=== PATIENT | female | born 1950 | race Caucasian/White ===

== ENCOUNTER → 2017-12-08 | Outpatient (CLI) | payer MEDICARE, OTHER ==
--- NOTE | 2017-12-08 10:45 | RADIOLOGY REPORT (SQ) ---
EXAM DESCRIPTION: BARIUM SWALLOW ESOPHAGUS COMPLETED DATE/TIME: 12/08/2017 9:55 am REASON FOR STUDY: R13.10 DYSPHAGIA, UNSPECIFIED R13.10 DYSPHAGIA, UNSPECIFIED COMPARISON: CT abdomen pelvis 06/12/2016 Barium swallow 10/03/2014, PET-CT 08/21/2010, [facility] TECHNIQUE: Under fluoroscopic guidance, patient ingested thin barium. Fluoroscopic spot images and r outine radiographic images acquired and stored on PACS. 12 MM BARIUM TABLET GIVEN: Yes. The barium tablet to about 5 minutes to pass through the esophagus, related to dysmotility. LIMITATIONS: None. FLUOROSCOPY TIME: 3 minutes 38 seconds 31 series of digital images saved to PACS. FINDINGS: NEUROMUSCULAR COORDINATION OF SWALLOW: Normal. No aspiration. ESOPHAGEAL MOTILITY: Prominent tertiary contractions of the esophagus. ESOPHAGEAL MUCOSA: Normal mucosa without masses or ulceration. 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 Un dandy the elevated left hemidiaphragm, the spleen, pancreatic tail, splenic flexure, and nearly the ent lucy stomach are present. The [place] gastroesophageal junction is below the left hemidiaphragm. [place], the stomach is inverted under the left hemidiaphragm, body of the stomach is cephalad to the fun dus and antral pyloric region. This configuration is similar compared to outside studies dating back to 2009. No Mirella fundoplication is identified. No gastroesophageal reflux on today's images. Imaging of the stomach demonstrates prompt emptying into the pylorus and duodenum bulb. Duodenum jej unal junction normal location, to the left of the spine. NON-GI TRACT STRUCTURES: Old lower cervical discectomy and fusion from C4 through C6 OTHER: No other significant finding. 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 Thi s configuration is similar compared to studies dating back to 2009 COMMENT: Quality ID 145: Final reports for procedures using fluoroscopy that document radiation exp osure indices, or exposure time and number of fluorographic images (if radiation exposure indices are not available) TECHNICAL DOCUMENTATION: JOB ID: [id number] [employer]- All Rights Reserved
== END ==
LOC: RAD 11:08
PROVIDERS: ATTEND Internal Medicine
DX: R13.10 Dysphagia, unspecified (principal)
CPT/HCPCS: 74220

== ENCOUNTER → 2018-02-18 | Outpatient (CLI) | payer MEDICARE, OTHER ==
--- NOTE | 2018-02-18 12:43 | RADIOLOGY REPORT (SQ) ---
EXAM DESCRIPTION: COOKIE SWALLOW COMPLETED DATE/TIME: 02/18/2018 10:01 am REASON FOR STUDY: DYSPHAGIA R13.10 DYSPHAGIA, UNSPECIFIED FOOD IN PHARYNX CAUSING OTHER INJURY, SEQ UELA T1 7.228 S COMPARISON: Barium swallow 12/08/2017 TECHNIQUE: Videofluoroscopic swallowing examination was performed in conjunction with speech patholo gy. Videofluoroscopic imaging was obtained and reviewed and these are the findings: RADIATION DOSE: Total fluoroscopy time: 1 minutes 41 seconds 1 fluoroscopy image saved to PACS. LIMITATIONS: None FINDINGS: The patient was brought into the fluoro room and placed upright on a modified barium swall ow chair. The patient was then given multiple consistencies mixed with barium to swallow under live fluoroscopic video guidance. According to the Speech Pathologist there was no laryngeal penetration and no tracheal aspiration. Normal oral and pharyngeal transit time was observed. No significant po st swallow residual seen. Barium tablet was swallowed without difficulty. Cervical hardware is note d overlying C 4 through 6. Please see speech pathology report for further details and recommendations . IMPRESSION: NO EVIDENCE OF LARYNGEAL PENETRATION OR TRACHEAL ASPIRATION.PLEASE SEE SPEECH PATHOLOGIS T REPORT FOR OTHER FINDINGS AND RECOMMENDATIONS. COMMENT: Quality ID 145: Final reports for procedures using fluoroscopy that document radiation exp osure indices, or exposure time and number of fluorographic images (if radiation exposure indices are not available) TECHNICAL DOCUMENTATION: JOB ID: [id number] [employer]- All Rights Reserved Reading location - IP/workstation name: [email or web address]
--- NOTE | 2018-02-19 09:05 | ST Modified Barium Swallow ---
Recommendation - Recommendations Recommendations: No oral or pharyngeal swallowing deficits noted. No diet modifications recommended. Medical Diagnoses - Medical Diagnoses Medical Diagnosis Description & ICD-10 Code(s): dysphagia R13.10 Other Medical Diagnoses/Co-Morbidities: per patient report: Sjogren's, Audrey 's, hernia, cervical spine fusion May 2003 ST Modified Barium Swallow - General Date: 02/18/18 Referring Physician: Dr. Buchanan - History History obtained from: Patient -: Medical - Patient reports that she notices having difficulty with solids and liquids with swallowing. Reports she feels that material is sticking in her throat, which causes her to cough at times. She reports a prior MBSS in 2013 at [facility], and reports that the therapist for that study indicated "pills wanted to sit on a shelf". No treatment was rendered at that time. The patient also reports a history of hernia surgery in 2009, with multiple issues regarding stomach and esophagus. Does report some burning sensation in her throat at times, for which her physician prescribed protonix. The patient reports no history of pneumonia, and no history of CVA. Medications: patient reports taking protonix and zantac, as well as vitamins, complete medication list not given. Allergies: Patient reports celery and mint allergy, medication allergies listed in chart. - Functional Status Prior Functional Status: INDEPENDENT: feeding - Subjective Patient/caregiver goal(s): safe swallow Cognitive-Linguistic Function: WNL Speech Intelligibility: WNL Current Nutritional Means: PO Current PO diet: Regular Current symptoms: Coughing, c/o Globus sensation Pain: Patient reports, 0/5 - Objective Assessment: Upright, Left Lateral - Food Trials Used Food trials used: Thin liquids, Pureed, Regular, Other - barium tablet The patient: Was Able to Self Feed - Oral-Motor Skills Dentition: Full Laryngeal Function: Volitional Cough - WNL, Volitional Swallow - WNL - Assessment Oral prep: Normal Labial closure: Adequate Leakage: None Mastication: Adequate Lingual Movement: Normal Oral stage: Normal for this Procedure - Pharyngeal Stage Initiation of Pharyngeal Stage Reflex: Normal Decreased laryngeal elevation: No Reduced Velopharyngeal Closure: no Reduced pressure generation: No reduced tongue-based retraction: No Pre-swallow pooling in valleculae: None Pre-Swallow pooling in pyriforms: None Reduced Thyro-Hyoid approximation: No Reduced epiglottic excursion: No Reduced pharyngeal peristalsis/contraction: No Post-swallow residulas vallecular: Mild Post-Swallow residuals in pyriforms: None Pharyngeal Stage Comments: Signs of posterior pharyngeal wall variance at approximately level C3 near site of cervical fusion. Did not impact swallowing function. - Fall Risk Assessment Medications/Conditions that increase fall risks include: Antidepressants, sedatives, anti-arrhythmic, diuretic, benzodiazipenes, neuroleptics. BP regulation problems, cardiac problems, balance or gait deficits, neurological problems. Fall Risk Actions Taken: No action needed - Behavioral Observations During evaluation process patient: was pleasant, was cooperative, able to answer questions, provided medical history - Treatment / Educational Needs: Treatment/Education Needs: Treatment consisted of patient education on the role of the Speech Pathologist. Patient's plan of care and golas were communicated as well as scheduling and attendance policies. Recommendations for initial home program were shared. Patient demonstrated understanding and verbalized agreement. - Impression/Summary Laryngeal Penetration: No Tracheal Aspiration: no Patient presents with: Normal swallow at eval Risk of Aspiration: Minimal Evaluation and Findings: Patient presents with no oral or pharyngeal deficits in function of swallow. Patient may be feeling some discomfort or globus sensation due to co-occuring issues such as thyroid dysfunction and esophageal issues. - Recommendations Solid diet recommendations: Regular Liquid Diet Modification: Thin Pt/Family education and followup with MD: Yes Dysphagia therapy with MANUFACTURING QUALITY INSPECTOR: no - Patient stated at evaluation that she had an outpatient clinical swallowing evaluation scheduled. Educated patient on nature of her swallowing, and that dysphagia treatment may not be beneficial to her. Stated that she can keep the evaluation that was scheduled to further discuss her MBSS results, or for further education on swallowing disorders. Patient stated she would discuss with her physician whether she should keep the appointment or not. Recommended techniques: Fully Upright During Meal, Small Bites and Sips Information, Precautions and Recommendations: Patient (Written), Patient (Verbal ) - Time Total Time: 20 - Plan of Care Patient to follow-up with referring physician: Yes Strategies to optimize patient understanding include:: ongoing assessment of educational needs, implementation of educational strategies, and re-education. - - -: Thank you for the opportunity to work with this patient and his/her family. Should you have any questions about this patient's plan or progress, I can be reached at [phone]. Charge G Code? - - -: Yes ST F.L. Impairment Category - Rationale Based On Rationale Based On: Func. Asskandis. Tool Results - Swallowing Current G8996: CH 0% Impaired Goal G8997: CH 0% Impaired Discharge G8998: CH 0% Impaired
== END ==
LOC: RAD 08:09
PROVIDERS: ATTEND Otolaryngology
DX: R13.10 Dysphagia, unspecified (principal)
CPT/HCPCS: 74230; 92611; G8996; G8997; G8998

== ENCOUNTER → 2019-01-31 | Outpatient (CLI) | payer MEDICARE, OTHER ==
--- NOTE | 2019-01-31 15:08 | RADIOLOGY REPORT (SQ) ---
EXAM DESCRIPTION: NM GASTRIC EMPTYING STUDY COMPLETED DATE/TIME: 01/31/2019 2:35 pm REASON FOR STUDY: R10.13 EPIGASTRIC PAIN R10.13 EPIGASTRIC PAIN COMPARISON: None. RADIONUCLIDE AND DOSE: 1.98 millicuries Tc-99m Sulfur Colloid. A wide variety of solid foods have been used. The route of agent administration: Oral. TECHNIQUE: 1 minute serial static imaging performed at time of meal, 1 hour, 2 hours, 3 hours, and 4 hours as needed. Once stomach reaches 90% emptying, the test is complete. Image intensity values pl otted with respect to time with linear regression algorithm. LIMITATIONS: None. FINDINGS: Patient was observed for 4 hours. Immediate post meal serves as baseline. Gastric emptying at 60 minutes was 21.1%. Gastric emptying at 90 minutes was 31.7% Gastric emptying at 120 minutes was 42.2%. Gastric emptying at 240 minutes was 84.4%. Normal values: 60 minutes: 30-90% retained. If less than 30%, abnormally rapid emptying. If greater than 90%, del ayed gastric emptying. 120 minutes: <60% retained. If greater than 60%, delayed gastric emptying. 240 minutes: <10% retained. If greater than 10%, delayed gastric emptying. IMPRESSION: NORMAL GASTRIC EMPTYING. TECHNICAL DOCUMENTATION: JOB ID: [id number] 2010 [employer]- All Rights Reserved rev-03/19 Reading location - IP/workstation name: [email or web address]
== END ==
LOC: RAD 10:07
PROVIDERS: ATTEND Internal Medicine Gastroenterology
DX: R10.13 Epigastric pain (principal)
CPT/HCPCS: 78264; A9541